=== PATIENT | female | born 2000 | race Caucasian/White ===

== ENCOUNTER 2022-07-08 15:31 | Emergency (ER) | payer OTHER, SELFPAY ==
[2022-07-08 15:41] VITALS: BP 128/79; PULSE 98; RESP 20; TEMP 37.2; O2SAT 100
--- NOTE | 2022-07-08 15:43 | ED.URI ---
HPI - URI/Sore Throat General Chief Complaint: Upper Respiratory Infection Stated Complaint: RUNNY NOSE/SORE THROAT/TIRED Time Seen by Provider: 07/08/22 16:00 Source: patient and RN notes reviewed Mode of arrival: ambulatory Limitations: no limitations History of Present Illness HPI Narrative: 22-year-old female presents with concern for 4 day history of sinus congestion, drainage, fatigue, sore throat. Reports her boyfriend has influenza. Reports she has been intermittently taking Sudafed and ibuprofen. MD elicited complaint: sore throat and nasal congestion Related Data Home Medications Medication Instructions Recorded Confirmed norgestimate 0.25 mg-ethinyl 1 tablet DAILY 07/08/22 07/08/22 estradiol 35 mcg tablet (Jaz) spironolactone 100 mg tablet 100 mg DAILY 07/08/22 07/08/22 Allergies Allergy/AdvReac Type Severity Reaction Status Date / Time No Known Allergies Allergy Verified 07/08/22 16:09 Review of Systems Review of Systems: CONSTITUTIONAL: Reports malaise, fatigue, sweats EYES: Denies visual changes, redness, or discharge. ENT: Reports rhinorrhea, congestion, and sore throat. CARDIOVASCULAR: Denies chest pain, palpitations, or edema. RESPIRATORY: Tonight cough. Denies dyspnea. GASTROINTESTINAL: Denies abdominal pain, nausea, vomiting, diarrhea SKIN: Denies rash or itching. MUSCULOSKELETAL: Denies myalgia. NEUROLOGIC: Denies headache. All systems reviewed & are unremarkable except as noted in HPI and below PMFSH Comments At time of signature, agree with nursing past medical, surgical, social and family history. There is no relevant family history pertinent to the presenting complaint Exam Narrative: GENERAL: Well-appearing, well-nourished, and in no acute distress. HEAD: Normocephalic EYES: PERRLA, conjunctivae clear ENT: Nares clear, turbinates edematous and erythematous, clear discharge. Mucous membranes moist. TM pearly dunbar with sharp light reflex bilaterally; no tragal tenderness. Oropharynx not erythematous without lesions. Tonsils not enlarged and without exudate, no drooling, no hoarseness, no trismus, uvula midline. NECK: Supple. No lymphadenopathy CHEST: Clear to auscultation, breath sounds equal. No wheezing, rhonchi, rales, or stridor. No respiratory distress, speaks in full sentences. HEART: Regular rate and rhythm. No murmur heard. SKIN: Warm, dry, no rash. NEURO: Alert and oriented x3. PSYCH: Normal mood and affect Course Course Emergency Course: Patient is aware of diagnosis, understands and agrees to treatment plan. Anticipatory guidance given. Patient agrees to follow-up as directed and is aware of reasons to seek care at the emergency department. Portions of this record may have been created with voice recognition software Level of Care: Express Care Visit Vital Signs Vital signs: Vital Signs Temperature 99 F 07/08/22 15:41 Pulse Rate 98 07/08/22 15:41 Respiratory Rate 20 07/08/22 15:41 Blood Pressure 128/79 07/08/22 15:41 Pulse Oximetry 100 07/08/22 15:41 Temperature 99 F 07/08/22 15:41 Pulse Rate 98 07/08/22 15:41 Respiratory Rate 20 07/08/22 15:41 Blood Pressure 128/79 07/08/22 15:41 Pulse Oximetry 100 07/08/22 15:41 Reviewed. MDM - URI/Sore Throat MDM Narrative Medical decision making narrative: Differential diagnosis considered: Rob[place]o virus, strep pharyngitis, allergic rhinitis, upper respiratory tract infection, sinusitis, rhinosinusitis, nasopharyngitis. viral pharyngitis, otitis media, otitis externa, pneumonia, bronchitis, viral cough syndrome, viral syndrome, and influenza. Exam findings show no acute concerns or changes; patient is non-toxic appearing and is in no distress. Patient is appropriate for outpatient treatment and follow-up. Lab Data Attestation: I reviewed the patient's lab results. Critical Care Time Critical Care Time Critical Care Time: No Discharge Plan Discharge Clinical Impression: Influ
== END 2022-07-08 16:29 | disposition home or self-care (01) ==
PROVIDERS: Emergency Provider Nurse Practitioner
DX: J11.1 Influenza due to unidentified influenza virus with other respiratory manifestations (principal)
CPT/HCPCS: 99213; G0463